=== PATIENT | female | born 1975 | race Caucasian/White ===

== ENCOUNTER 2021-02-11 17:33 | Emergency (ER) | payer SELFPAY ==
[~2021-02-11] VITALS: Ht 160 cm; Wt 65.8 kg
[2021-02-11 17:43] VITALS: BP 114/46
--- NOTE | 2021-02-11 17:48 | NUR ---
PT AMBULATED TO BED 5 WITH STEADY GAIT.
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
--- NOTE | 2021-02-11 18:16 | NUR ---
EKG AT BEDSIDE.
[2021-02-11 18:40] LABS: BASOPHILS # (AUTO) 0.1 K/uL (0.00-0.22); BASOPHILS % (AUTO) 0.8 % (0.0-2.0); EOSINOPHILS # (AUTO) 0.1 K/uL (0-0.4); EOSINOPHILS % (AUTO) 1.3 % (0.0-4.0); HEMATOCRIT 37.7 % (36-48); HEMOGLOBIN 12.6 g/dL (12.0-16.0); LYMPHOCYTES # (AUTO) 2.5 K/uL (2.5-16.5); LYMPHOCYTES % (AUTO) 31.9 % (20.5-51.1); MEAN CORPUSCULAR HEMOGLOBIN 30 pg (27-31); MEAN CORPUSCULAR HGB CONC 33 g/dL (33-37); MEAN CORPUSCULAR VOLUME 89.7 fL (80-94); MONOCYTES # (AUTO) 0.6 K/uL (0.8-1.0); MONOCYTES % (AUTO) 8.4 % (1.7-9.3); NEUTROPHILS # (AUTO) 4.4 K/uL (1.8-7.7); NEUTROPHILS % (AUTO) 57.6 % (42.2-75.2); PLATELET COUNT (AUTO) 278 K/uL (140-450); RED CELL DISTRIBUTION WIDTH 14.1 % (11.6-13.7); WHITE BLOOD COUNT (AUTO) 7.7 K/uL (4.8-10.8)
[2021-02-11 18:42] LABS: APPEARANCE,URINE CLEAR (CLEAR); BILIRUBIN,URINE NEGATIVE (NEGATIVE); BLOOD, URINE TRACE-I (NEGATIVE); COLOR,URINE YELLOW (YELLOW); LEUKOCYTE ESTERASE ,URINE 1+ (NEGATIVE); NITRITE, URINE NEGATIVE (NEGATIVE); UGLUCOSE NEGATIVE (NEGATIVE)
[2021-02-11 19:10] LABS: RBC,URINE 0-5 /HPF (0-5)
[2021-02-11 19:12] LABS: ALBUMIN 3.7 g/dL (3.4-5.0); ANION GAP 10.6 (8-16); CARBON DIOXIDE 29.5 mmol/L (21-32); CREATININE 0.8 mg/dL (0.6-1.3); POTASSIUM 3.1 mmol/L (3.5-5.1); TOTAL BILIRUBIN 0.4 mg/dL (0.0-1.0)
[2021-02-11] MEDS ORDERED: cephALEXin 500 MG CAP PO ONE (19:20)
[2021-02-11] MEDS ORDERED: CEPH500C16 PO (19:23)
[2021-02-11] MEDS ORDERED: POTASSIUM CHLORIDE 10 MEQ TABER PO ONE (19:25)
--- NOTE | 2021-02-11 19:28 | NUR ---
REPORT GIVEN TO JAHAIAR TIMMONS, TRANSFER OF CARE AT THIS TIME.
[2021-02-12] MEDS ORDERED: SULF-59 PO (15:39)
[2021-02-12] MEDS ORDERED: NAPR-54 PO (15:39)
== END 2021-02-11 19:45 | disposition home or self-care (01) ==
LOC: MED 17:33
DX: N39.0 Urinary tract infection, site not specified (principal); Z79.899 Other long term (current) drug therapy
CPT/HCPCS: 36415; 80053; 81001; 81025; 83735; 84703; 85025; 87086; 93005; 99284

== ENCOUNTER 2021-02-12 14:40 | Emergency (ER) | payer SELFPAY ==
[~2021-02-12] VITALS: Ht 160 cm; Wt 65.8 kg
[~2021-02-12 14:40] MED LIST: CEPH500C16 PO
[2021-02-12 15:01] VITALS: BP 132/75
--- NOTE | 2021-02-12 15:05 | NUR ---
45 Y/O FEMALE C/O SUBJECTIVE FEVER X1DAY, +CHILLS, +DIARRHEA, ABDOMINAL PAIN 7/10 DESCRIBES PRESSURE/CRAMPING RADIATING TO LOWER BACK. PT STATES SHE WAS SEEN YESTERDAY, PRESCRIBED ABX AND SYMPTOMS HAVE WORSENED. DENIES PMH NKA
--- NOTE | 2021-02-12 15:13 | NUR ---
PT TAKEN TO BED 11.
[2021-02-12] MEDS ORDERED: KETOROLAC 30 MG/ML VIAL IM ONE (15:25)
[2021-02-12] MEDS ORDERED: NAPR-54 PO (15:39)
[2021-02-12] MEDS ORDERED: SULF-59 PO (15:39)
[2021-02-12 15:45] VITALS: BP 132/75
--- NOTE | 2021-02-12 15:45 | NUR ---
Patient discharged with v/s stable. Written and verbal after care instructions given and explained. Patient alert, oriented and verbalized understanding of instructions. Ambulatory with steady gait. All questions addressed prior to discharge. ID band removed. Patient advised to follow up with PMD. Rx of BACTRIM, NAPROSYN given. Patient educated on indication of medication including possible reaction and side effects. Opportunity to ask questions provided and answered.
== END 2021-02-12 15:45 | disposition home or self-care (01) ==
LOC: MED 14:40
DX: N39.0 Urinary tract infection, site not specified (principal)
CPT/HCPCS: 81002; 81025; 96372; 99283; J1885; 96374

== ENCOUNTER 2021-07-05 15:15 | Emergency (ER) | payer SELFPAY ==
[~2021-07-05 15:15] MED LIST changes: +NAPR-54 PO; +SULF-59 PO
--- NOTE | 2021-07-05 15:23 | NUR ---
LEFT WITHOUT BEING SEEN
== END 2021-07-05 15:23 | disposition left against medical advice (07) ==
LOC: MED 15:15
DX: Z53.21 Procedure and treatment not carried out due to patient leaving prior to being seen by health care provider (principal)